=== PATIENT | female | born 2000 | race Caucasian/White ===

== ENCOUNTER 2022-09-19 15:52 | Emergency (ER) | payer OTHER ==
[~2022-09-19] VITALS: Ht 172.7 cm; Wt 177.2 kg
[2022-09-19] MEDS ORDERED: AUGMENTIN 875 MG TAB PO ONE (17:15)
[2022-09-19] MEDS ORDERED: MAGIC MOUTHWASH *ED ONLY* 5ML ORAL SYRINGE SSP ONE (17:15)
[2022-09-19] MEDS ORDERED: KETOROLAC 60MG 2ML VIAL IM ONE (17:15)
[2022-09-19] MEDS ORDERED: NAPR-837 PO (17:54)
[2022-09-19] MEDS ORDERED: MAGICMW SSP (17:54)
[2022-09-19] MEDS ORDERED: HYDR-3713 PO (17:54)
[2022-09-19] MEDS ORDERED: AMOX875T2 PO (17:54)
[2022-09-19 19:53] VITALS: BP 131/73
== END 2022-09-19 19:56 | disposition home or self-care (01) ==
LOC: M ED 15:52
DX: K04.7 Periapical abscess without sinus (principal); K03.81 Cracked tooth; Z79.2 Long term (current) use of antibiotics; Z79.899 Other long term (current) drug therapy

== ENCOUNTER 2022-11-04 12:24 | Emergency (ER) | payer OTHER ==
[~2022-11-04] VITALS: Ht 175.3 cm; Wt 179.2 kg
[~2022-11-04 12:24] MED LIST: AMOX875T2 PO; HYDR-3713 PO; MAGICMW SSP; NAPR-837 PO
[2022-11-04 12:26] VITALS: BP 158/78
== END 2022-11-04 14:22 | disposition home or self-care (01) ==
LOC: M ED 12:24
DX: S93.401A Sprain of unspecified ligament of right ankle, initial encounter (principal); X58.XXXA Exposure to other specified factors, initial encounter; Y92.89 Other specified places as the place of occurrence of the external cause; Y93.89 Activity, other specified; Y99.8 Other external cause status